=== PATIENT | female | born 1985 | race African-American/Black ===

== ENCOUNTER 2017-08-27 22:09 | Emergency (ER) | payer OTHER ==
[~2017-08-27] VITALS: Ht 160 cm; Wt 71.7 kg
[~2017-08-27 22:09] MED LIST: ADVAIR HFA 115-12 GM INH; ALBUTEROL SULF8.5 GM INH; ALBUTEROL2.5 MG/3 M HHN; ALPRAZOLAM0.25 MG ORAL; ATIVAN0.5 MG ORAL; BUSPAR10 MG ORAL; CEPHALEXIN500 MG ORAL; PREDNISONE20 MG ORAL; QVAR7.3 GM INH; XANAX0.5 MG ORAL; ZITHROMAX250 MG ORAL
[2017-08-27 22:20] VITALS: BP 148/76
[2017-08-27] MEDS ORDERED: LORazepam Inj 2mg/ml 1ml IV ONE (22:45)
--- NOTE | 2017-08-27 22:45 | Emergency Room Report ---
History of Present Illness General Chief Complaint: Upper Respiratory Illness Source: Patient, Medical Record Present Illness HPI Is a 32-year-old female with history of asthma and anxiety. She presents with chief complaint of shortness of breath. This has been onset for last 2 days. Slight cough. No nausea no vomiting. She just flew back from [place]. Denies any leg swelling. Denies any nausea vomiting. Denies any dyspnea exertion. She does have some slight chest pressure. Has tingling is in her fingers. Allergies: Coded Allergies: No Known Allergies (Unverified , 07/11/16) Patient History Past Medical History: see triage record, old chart reviewed, asthma, psych hx Past Surgical History: none Pertinent Family History: none Social History: Denies: smoking Last Menstrual Period: 08/24/17 Now: No - unknown : 1 Para: 1 Immunizations: other Reviewed Nursing Documentation: PMH: Agreed, PSxH: Agreed Nursing Documentation-PMH Hx Asthma: Yes History Of Psychiatric Problem: Yes - Anxiety Review of Systems Eye: Denies: eye pain, blurred vision ENT: Denies: ear pain, nose congestion, throat swelling Respiratory: Reports: shortness of breath, Denies: cough Cardiovascular: Denies: chest pain, palpitations Gastrointestinal: Denies: abdominal pain, diarrhea, nausea, vomiting Musculoskeletal: Denies: back pain, joint pain Skin: Denies: rash Neurological: Denies: headache, numbness Endocrine: Denies: increased thirst, increased urine Hematologic/Lymphatic: Denies: easy bruising All Other Systems: negative except mentioned in HPI Physical Exam Vital Signs Date Time Temp Pulse Resp B/P (MAP) Pulse Ox O2 Delivery O2 Flow Rate FiO2 08/27/17 22:19 99.0 66 20 148/76 98 Room Air vitals unremarkab Sp02 EP Interpretation: reviewed, normal General Appearance: well appearing, no apparent distress, alert Head: normocephalic, atraumatic Eyes: bilateral eye PERRL, bilateral eye EOMI ENT: hearing grossly normal, normal pharynx Neck: full range of motion, supple, no meningismus Respiratory: chest non-tender, lungs clear, normal breath sounds Cardiovascular #1: regular rate, rhythm, no murmur Gastrointestinal: normal bowel sounds, non tender, no mass, no organomegaly, no bruit, non-distended Musculoskeletal: back normal, gait/station normal, normal range of motion Psychiatric: anxious Skin: warm/dry Medical Decision Making Diagnostic Impression: Primary Impression: Acute hyperventilation Additional Impression: Anxiety ER Course Patient with shortness of breath and anxiety and hyperventilation. No evidence of wheezing. No evidence of PE, ACS, pneumonia to name a few. [place] better after Ativan. We'll discharge home Last Vital Signs Date Time Temp Pulse Resp B/P (MAP) Pulse Ox O2 Delivery O2 Flow Rate FiO2 08/27/17 22:20 66 20 Room Air 08/27/17 22:20 99.0 148/76 98 Status: improved Disposition: HOME, SELF-CARE Condition: Stable Scripts Lorazepam* (ATIVAN*) 1 Mg Tablet 1 MG ORAL THREE TIMES A DAY, #21 TAB Prov: LENY FLOYD M.D. 08/28/17 Albuterol Sulfate* (ALBUTEROL SULFATE HHN*) 2.5 Mg/3 Ml Vial.neb 2.5 MG HHN Q4H Y for Shortness of Breath, #25 VIAL Prov: LENY FLOYD M.D. 08/28/17 Additional Instructions: Followup with your DrGm in 7 days. Return if worse. LENY FLOYD M.D. Aug 27, 2017 22:45
[2017-08-28 00:42] VITALS: BP 137/80
[2017-08-28] MEDS ORDERED: ATIVAN1 MG ORAL (01:19)
[2017-08-28] MEDS ORDERED: ALBUTEROL2.5 MG/3 M HHN (01:19)
[2017-08-28 01:27] VITALS: BP 137/80
== END 2017-08-28 01:27 | disposition home or self-care (01) ==
LOC: EMR 23:08
DX: R06.4 Hyperventilation (principal); F41.9 Anxiety disorder, unspecified
CPT/HCPCS: 36415; 85379; 96374; 99284

== ENCOUNTER 2017-09-26 14:06 | Emergency (ER) | payer OTHER ==
[~2017-09-26] VITALS: Ht 162.6 cm; Wt 63.5 kg
[~2017-09-26 14:06] MED LIST changes: +ATIVAN1 MG ORAL
[2017-09-26 14:18] VITALS: BP 129/75
[2017-09-26] MEDS ORDERED: Phenazopyridine 200mg tab ORAL ONE (14:45)
[2017-09-26 14:48] LABS: APPEARANCE,URINE SLIGHTLY CLOUDY; BILIRUBIN, URINE NEGATIVE (NEGATIVE); COLOR,URINE PALE YELLOW; GLUCOSE, URINE (UA) NEGATIVE (NEGATIVE); KETONES,URINE NEGATIVE (NEGATIVE); LEUKOCYTE ESTERASE ,URINE 3+ (NEGATIVE); NITRITE,URINE NEGATIVE (NEGATIVE); PH,URINE 8 (4.5-8.0); PROTEIN,URINE 2+ (NEGATIVE); UROBILINOGEN,URINE NORMAL MG/DL (0.0-1.0)
--- NOTE | 2017-09-26 15:20 | Emergency Room Report ---
History of Present Illness General Chief Complaint: General Complaint Present Illness HPI 32-year-old female presents to the emergency department complaining of 6/10 in severity dysuria, hematuria and frequency x5 days. Patient denies low back pain , fevers, chills. Patient reports her symptoms are consistent with previous UTIs in the past. Patient reports some abdominal distention she denies abdominal tenderness and reports her symptoms are localized to the anterior where her bladder is. Patient states symptoms are exacerbated with full bladder. She also reports watery eyes, nasal congestion, rhinorrhea and cough. Denies . Denies high fevers, lethargy, neck stiffness, irritability , photophobia dehydration, N/V/D. Denies Cp, Palpitations, LOC, AMS, seizures, paresthesias, or changes in Hearing or vision, no Sudden severe MCGEE Allergies: Coded Allergies: No Known Allergies (Unverified , 07/11/16) Patient History Past Medical History: see triage record Past Surgical History: none Pertinent Family History: none Immunizations: UTD Reviewed Nursing Documentation: PMH: Agreed, PSxH: Agreed Nursing Documentation-PMH Hx Asthma: Yes Review of Systems All Other Systems: negative except mentioned in HPI Physical Exam Vital Signs Date Time Temp Pulse Resp B/P (MAP) Pulse Ox O2 Delivery O2 Flow Rate FiO2 09/26/17 14:08 98.6 72 20 129/75 100 Room Air Sp02 EP Interpretation: reviewed, normal General Appearance: no apparent distress, alert, GCS 15, non-toxic Head: normocephalic, atraumatic Eyes: bilateral eye normal inspection, bilateral eye PERRL, bilateral eye other - erythema, no photophobia, mild increased lacrimation, no d/c noted. VA normal. ENT: hearing grossly normal, normal voice Neck: full range of motion Respiratory: chest non-tender, lungs clear, normal breath sounds, speaking full sentences Cardiovascular #1: regular rate, rhythm, no edema Gastrointestinal: normal bowel sounds, non tender, soft Rectal: deferred Genitourinary: normal inspection Musculoskeletal: back normal, gait/station normal, normal range of motion, non- tender Neurologic: alert, oriented x3, responsive, motor strength/tone normal, sensory intact, speech normal, grossly normal Psychiatric: judgement/insight normal Skin: normal color, no rash, warm/dry, well hydrated Lymphatic: no adenopathy Medical Decision Making PA Attestation Dr. jaime is my supervising Physician whom patient management has been discussed with. Diagnostic Impression: Primary Impression: UTI (urinary tract infection) Qualified Codes: N30.01 - Acute cystitis with hematuria Additional Impressions: Cough Allergic conjunctivitis of both eyes and rhinitis ER Course 32-year-old female presents to the emergency department complaining of 6/10 in severity dysuria, hematuria and frequency x5 days. Patient denies low back pain , fevers, chills. Patient reports her symptoms are consistent with previous UTIs in the past. Patient reports some abdominal distention she denies abdominal tenderness and reports her symptoms are localized to the anterior where her bladder is. Patient states symptoms are exacerbated with full bladder. She also reports watery eyes, nasal congestion, rhinorrhea and cough. Denies . Denies high fevers, lethargy, neck stiffness, irritability , photophobia dehydration, N/V/D. Denies Cp, Palpitations, LOC, AMS, seizures, paresthesias, or changes in Hearing or vision, no Sudden severe MCGEE Ddx considered but are not limited to UTi , Pyelo, STI, Stone, Cystitis, URI, PNA, conjunctivitis just to name a few. Vital signs: are WNL, pt. is afebrile H&PE are most consistent with UTI ORDERS: - UA labs are attached : bacteria + in creased WBC's and leuks. -Urine Hcg: Negative. ED INTERVENTIONS: None required at this time. - Pyridium PO DISCHARGE: At this time pt. is stable for d/c to home. Will provide printed patient care instructions, and any necessary prescriptions. Care plan and follow up instructions have been discussed with the patient prior to discharge. Labs Test 09/26/17 14:14 Urine Color Pale yellow Urine Appearance Slightly cloudy Urine pH 8 (4.5-8.0) Urine Specific [place] 1.010 (1.005-1.035) Urine Protein 2+ (NEGATIVE) Urine Glucose (UA) Negative (NEGATIVE) Urine Ketones Negative (NEGATIVE) Urine Occult Blood 5+ (NEGATIVE) Urine Nitrite Negative (NEGATIVE) Urine Bilirubin Negative (NEGATIVE) Urine Urobilinogen Normal MG/DL (0.0-1.0) Urine Leukocyte Esterase 3+ (NEGATIVE) Urine RBC 20-30 /HPF (0 - 2) Urine WBC 20-30 /HPF (0 - 2) Urine Squamous Epithelial Cells Few /LPF (NONE/OCC) Urine Bacteria Few /HPF (NONE) Urine HCG, Qualitative Negative Last Vital Signs Date Time Temp Pulse Resp B/P (MAP) Pulse Ox O2 Delivery O2 Flow Rate FiO2 09/26/17 14:18 98.6 20 129/75 100 Room Air 09/26/17 14:08 72 Disposition: HOME, SELF-CARE Condition: Stable Scripts Fluconazole (FLUCONAZOLE) 100 Mg Tablet 100 MG ORAL DAILY, #2 TAB 0 Refills Prov: Sierra Franco P.A. 09/26/17 Guaifenesin (Guaifenesin) 1,200 Mg Tab.er.12h 1200 MG PO BID, #10 TAB Prov: Sierra Franco P.A. 09/26/17 Codeine/Promethazine Hcl* (PROMETHAZINE-CODEINE SYRUP*) 118 Ml Syrup 5 ML ORAL Q6H Y for For Cough, #118 ML 0 Refills Prov: Sierra Franco P.A. 09/26/17 Olopatadine Hcl (PATADAY) 2.5 Ml Drops 2 DROP OP DAILY, #2.5 ML Prov: Sierra Franco P.A. 09/26/17 Phenazopyridine Hcl* (PYRIDIUM*) 200 Mg Tablet 200 MG ORAL THREE TIMES A DAY for 3 Days, #9 TAB 0 Refills Prov: Sierra Franco P.A. 09/26/17 Nitrofurantoin Monohyd/M-Cryst* (MACROBID 100 MG*) 100 Mg Capsule 100 MG ORAL EVERY 12 HOURS for 5 Days, #10 CAP Prov: Sierra Franco.A. 09/26/17 Referrals: NOT CHOSEN IPA/MD,REFERRING (PCP) Patient Instructions: Allergic Conjunctivitis, Holr-wm-Uihl, Urinary Tract Infection Additional Instructions: Take medications as directed. Follow up with a Primary Care Provider in 3-5 days, even if your symptoms have resolved. --Please review list of primary care clinics, if you do not already have a primary care provider Return sooner to ED if new symptoms occur, or current symptoms become worse. Pyridium will cause your urine to change color (Red/Mascot), this is a normal side effect of the medication. - Please note that this Emergency Department Report was dictated using [employer] technology software, occasionally this can lead to erroneous entry secondary to interpretation by the dictation equipment. Sierra Franco. Sep 26, 2017 15:20
[2017-09-26] MEDS ORDERED: GUAIFENESIN1200 MG PO (15:24)
[2017-09-26] MEDS ORDERED: PHENAZOPYRIDIN200 MG ORAL (15:24)
[2017-09-26] MEDS ORDERED: NITROFURANTOIN100 M2 ORAL (15:24)
[2017-09-26] MEDS ORDERED: FLUCONAZOLE100 MG ORAL (15:24)
[2017-09-26] MEDS ORDERED: PROMETHAZINE-C118 M1 ORAL (15:24)
[2017-09-26] MEDS ORDERED: PATADAY2.5 ML OP (15:24)
[2017-09-26 15:30] VITALS: BP 129/75
== END 2017-09-26 15:30 | disposition home or self-care (01) ==
LOC: EMR 14:42
DX: N30.01 Acute cystitis with hematuria (principal); R05 Cough; H10.13 Acute atopic conjunctivitis, bilateral; J45.909 Unspecified asthma, uncomplicated
CPT/HCPCS: 81003; 81025; 87086; 99284

== ENCOUNTER 2019-08-14 19:06 | Emergency (ER) | payer OTHER ==
[~2019-08-14] VITALS: Ht 160 cm; Wt 77.1 kg
[~2019-08-14 19:06] MED LIST changes: +FLUCONAZOLE100 MG ORAL; +GUAIFENESIN1200 MG PO; +NITROFURANTOIN100 M2 ORAL; +PATADAY2.5 ML OP; +PHENAZOPYRIDIN200 MG ORAL; +PROMETHAZINE-C118 M1 ORAL
[2019-08-14] MEDS ORDERED: LORazepam 1mg tab ORAL ONE (19:15)
[2019-08-14] MEDS ORDERED: LORazepam Inj 2mg/ml 1ml IV ONE (19:30)
[2019-08-14 19:31] VITALS: BP 133/89
--- NOTE | 2019-08-14 19:44 | NUR ---
ED Nurse Note: Patient walked in to ER due to panick attack, severe anxiety. Patient presented with HR of 165, diaphoretic, crying. States that had panick attacks before. AAO x 4 , skin is warm to touch.
--- NOTE | 2019-08-14 19:57 | Emergency Room Report ---
History of Present Illness General Chief Complaint: Chest Pain Source: Patient Present Illness HPI 34 YO Female presents to the ED c/o 06/21 in severity dyspnea, shakiness, palpitations, and cramping of the hands bilaterally with associated bilateral hand paresthesias. Pt. with. hx of anxiety and takes 10mg Lexapro daily and is rx'd Xanax PRN for break through panic attacks. She states she is only rx'd small qty and last rx was in June. Pt. states she was out of her break through medication. Pt. reports under chronic amount of stress. She reports she just got a new PCP who dx'd her with HTN as well and has started her on Losartan. Pt. states she has not been taking the medication consistently but began taking it again this past week. pt. denies tobacco use or recent travel. She denies CP. She denies SI/HI, night sweats, significant changes in weight or hx of thyroid disorder. Pt. denies having calf pain. She denies taking oral contraception/ estrogen. Pt. reports she is currently on her cycle and denies suspicion of . Pt. reports THC use regularly. Denies hemoptysis, LOC, AMS, dizziness, Changes in Vision, Sensation, paresthesias, or a sudden severe headache. Allergies: Coded Allergies: No Known Allergies (Unverified , 08/14/19) Patient History Past Medical History: see triage record, HTN, GERD, psych hx - anxiety/panic attacks Past Surgical History: none Pertinent Family History: none Social History: Reports: drug use - THC Last Menstrual Period: now Now: No Immunizations: UTD Reviewed Nursing Documentation: PMH: Agreed; PSxH: Agreed Nursing Documentation-PMH Past Medical History: No History, Except For History Of Psychiatric Problem: Yes - anxiety attacks Review of Systems All Other Systems: negative except mentioned in HPI Physical Exam Vital Signs Date Time Temp Pulse Resp B/P (MAP) Pulse Ox O2 Delivery O2 Flow Rate FiO2 08/14/19 19:07 97.3 160 38 144/61 (88) 98 Room Air Sp02 EP Interpretation: reviewed, normal General Appearance: alert, GCS 15, non-toxic, moderate distress Head: normocephalic, atraumatic Eyes: bilateral eye normal inspection, bilateral eye PERRL, bilateral eye other - no exothalmus ENT: hearing grossly normal, no angioedema, normal voice Neck: full range of motion, thyroid normal Respiratory: chest non-tender, lungs clear, normal breath sounds, no respiratory distress, no accessory muscle use, no wheezing, speaking full sentences Cardiovascular #1: regular rate, rhythm, normal capillary refill, tachycardia Cardiovascular #2: 2+ radial (R), 2+ radial (L) Musculoskeletal: normal range of motion, gait/station normal, non-tender Neurologic: alert, motor strength/tone normal, oriented x3, sensory intact, cerebellar normal, responsive, speech normal Psychiatric: judgement/insight normal, memory normal, no suicidal/homicidal ideation, anxious Skin: no rash, normal color, normal inspection, warm/dry Medical Decision Making PA Attestation Dr. Clark Is my supervising Physician whom patient management has been discussed with. Diagnostic Impression: Primary Impression: Anxiety hyperventilation Additional Impression: Hx of primary hypertension ER Course 34 YO Female presents to the ED c/o 06/21 in severity dyspnea, shakiness, palpitations, and cramping of the hands bilaterally with associated bilateral hand paresthesias. Pt. with. hx of anxiety and takes 10mg Lexapro daily and is rx'd Xanax PRN for break through panic attacks. She states she is only rx'd small qty and last rx was in June. Pt. states she was out of her break through medication. Pt. reports under chronic amount of stress. She reports she just got a new PCP who dx'd her with HTN as well and has started her on Losartan. Pt. states she has not been taking the medication consistently but began taking it again this past week. pt. denies tobacco use or recent travel. She denies CP. She denies SI/HI, night sweats, significant changes in weight or hx of thyroid disorder. Pt. denies having calf pain. She denies taking oral contraception/ estrogen. Pt. reports she is currently on her cycle and denies suspicion of . Pt. reports THC use regularly. Denies hemoptysis, LOC, AMS, dizziness, Changes in Vision, Sensation, paresthesias, or a sudden severe headache. Ddx considered but are not limited to anxiety, GA, PE, asthma, thyroid storm, hyperthyroid, EPS Vital signs: tachypneic and tachycardic. Pt. is afebrile H&PE are most consistent with hyper-ventilation syndrome. Pt. is saturating at 99-100% O2 on RA. She is tachypneic. BP is elevated along with HR. Well criteria score does not suggest high probability of PE at this time. Low suspicion for cardiac etiology given absence of hx. and presentation. -review of CURES Report. Pt. has 3 previous rx's for small qty xanax by the same prescriber over the course of the last 12 months. Last fill was in June 2019 ORDERS: -UDS: pending- pt. unable to provide urine sample -EKG: initial -- 130bpm Sinus tachycardia no acute ST changes. No S1Q3T3 ---repeat: 113bpm Sinus tachycardia no acute ST changes. No S1Q3T3 ED INTERVENTIONS: -1mg Ativan IV - 0.1mg Clonidine PO The patient reports that her symptoms have improved greatly after ED interventions. Patient states that she feels much better and is ready to go home. -I do not identify an emergent condition at this time. With current presentation , pt. is stable for close outpatient follow up and conservative treatment. D/ w pt. to return promptly to ED with worsening or new symptoms.- Pt. verbalizes' understanding and agreement with proposed treatment plan. DISCHARGE: At this time pt. is stable for d/c to home. Will provide printed patient care instructions, and any necessary prescriptions. Care plan and follow up instructions have been discussed with the patient prior to discharge. EKG Diagnostic Results EP Interpretation: Dr. Clark Rate: tachycardiac - 113 NSR Rhythm: NSR ST Segments: no acute changes Other Impression No S1Q3T3 ASA given to the pt in ED: No PA Scribe Text This Interpretation was scribed by THEODORE Franco. Initial EKG which was of poor quality and when patient was actively moving showed sinus tachycardia with a rate of [address] segment changes. Chest X-Ray Diagnostic Results Chest X-Ray Diagnostic Results : Chest X-Ray Ordered: Yes # of Views/Limited/Complete: 1 View Indication: Shortness of Breath EP Interpretation: Yes THEODORE Xray: Interpretation reviewed, by supervising MD, and agrees with findings. Interpretation: no consolidation, no effusion, no pneumothorax, no acute cardiopulmonary disease Impression: No acute disease Electronically Signed by: Sierra Franco PA-C Last Vital Signs Date Time Temp Pulse Resp B/P (MAP) Pulse Ox O2 Delivery O2 Flow Rate FiO2 12/3/19 19:31 97.3 26 133/89 98 Room Air 08/14/19 19:31 160 Status: improved Disposition: HOME, SELF-CARE Condition: Stable Scripts Alprazolam* (XANAX*) 0.5 Mg Tablet 0.5 MG PO TID, #12 TAB Prov: Sierra Franco 08/14/19 Patient Instructions: Hyperventilation Additional Instructions: Take medications as directed. Do not drink alcohol, drive, or operate heavy machinery while taking Xanax as this may cause drowsiness. Follow up with a Primary Care Provider in 3-5 days, even if your symptoms have resolved. Return sooner to ED if new symptoms occur, or current symptoms become worse. - Please note that this Emergency Department Report was dictated using [employer]cher technology software, occasionally this can lead to erroneous entry secondary to interpretation by the dictation equipment. Sierra Franco Aug 14, 2019 19:57
--- NOTE | 2019-08-14 20:31 | NUR ---
ED Nurse Note: Patient states feel much better, feel safe.
[2019-08-14 21:41] VITALS: BP 150/98
--- NOTE | 2019-08-14 21:42 | NUR ---
ED Nurse Note: Pt cleared by health care Provider for discharge. DC instructions/prescription was given and explained to pt and verbalized understanding of teachings. All medical deviecs such as ID band removed. Pt is AAO x4, ambulatory and left with all personal belongings. Patient refused to sign DC papers.
--- NOTE | 2019-08-15 10:52 | Diagnostic Imaging Report ---
Indication: Chest pain Comparison: None A single view chest radiograph was obtained. Findings: Cardiomediastinal appearance is within normal limits for age. The lungs are clear. Pulmonary vascularity is appropriate. The diaphragmatic contour is smooth and costophrenic angles are sharp. No pleural effusions are identified. The bones are unremarkable. Impression: No acute findings
--- NOTE | 2019-08-15 16:14 | Cardiology Report ---
APPROVED REPORT EKG Measurement Heart [id number] ID [id number] Sinus tachycardia Otherwise normal ECG
== END 2019-08-14 21:43 | disposition home or self-care (01) ==
LOC: MERGE 20:37 → EMR 20:37
DX: F41.9 Anxiety disorder, unspecified (principal); I10 Essential (primary) hypertension; R06.4 Hyperventilation; K21.9 Gastro-esophageal reflux disease without esophagitis; R00.0 Tachycardia, unspecified
CPT/HCPCS: 71045; 93005; 96374; Z7502; 99284

== ENCOUNTER 2020-01-14 01:34 | Emergency (ER) | payer MEDICAID, OTHER ==
[~2020-01-14] VITALS: Ht 160 cm; Wt 77.1 kg
[2020-01-14 01:55] VITALS: BP 142/72
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
[2020-01-14] MEDS ORDERED: Morphine Sulfate 4mg/ml Inj (IV USE ONLY) IVP ONE (02:00)
[2020-01-14] MEDS ORDERED: LORazepam Inj 2mg/ml 1ml IV ONE (02:00)
--- NOTE | 2020-01-14 02:10 | NUR ---
ED Nurse Note: Iv line initated, IV fluids running, all medications administered, pt tolerated well. will continue to monitor.
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
--- NOTE | 2020-01-14 02:23 | NUR ---
ED Nurse Note: pt taken to CT in stable condition, no ss of distress noted.
--- NOTE | 2020-01-14 03:20 | NUR ---
ED Nurse Note: pt returned frmo CT in stable condition. Pt placed on monitor, IV fluids running.
--- NOTE | 2020-01-14 03:31 | Diagnostic Imaging Report ---
EXAM: CT Head Without Intravenous Contrast CLINICAL HISTORY: TRAUMA TECHNIQUE: Axial computed tomography images of the head/brain without intravenous contrast. CTDI is 53 mGy and DLP is 1152 mGy-cm. One or more of the following dose reduction techniques were used: automated exposure control, adjustment of the mA and/or kV according to patient size, use of iterative reconstruction technique. COMPARISON: No relevant prior studies available. FINDINGS: Brain: No hemorrhage or mass effect. Ventricles: No hydrocephalus. Bones/joints: Old left lamina papyracea fracture. Soft tissues: Unremarkable. Sinuses: Unremarkable. Mastoid air cells: Clear. IMPRESSION: No acute hemorrhage, hydrocephalus, or mass effect.
--- NOTE | 2020-01-14 03:39 | Diagnostic Imaging Report ---
EXAM: CT Chest Without Intravenous Contrast CLINICAL HISTORY: TRAUMA TECHNIQUE: Axial computed tomography images of the chest without intravenous contrast. CTDI is 7 mGy and DLP is 250 mGy-cm. One or more of the following dose reduction techniques were used: automated exposure control, adjustment of the mA and/or kV according to patient size, use of iterative reconstruction technique. COMPARISON: No relevant prior studies available. FINDINGS: Lungs: No mass. No consolidation. Pleural space: No pneumothorax. No effusion. Heart: Normal heart size. No pericardial effusion. Bones/joints: No acute fracture. Soft tissues: Unremarkable. Vasculature: Unremarkable. No thoracic aortic aneurysm. Lymph nodes: No enlarged lymph nodes. Upper abdomen: Unremarkable. IMPRESSION: No acute intrathoracic findings.
--- NOTE | 2020-01-14 03:50 | NUR ---
ED Nurse Note: ERMD at bedside
[2020-01-14] MEDS ORDERED: ALPRAZOLAM1 M2 ORAL (03:54)
[2020-01-14] MEDS ORDERED: NAPROXEN500 M2 ORAL (03:54)
[2020-01-14] MEDS ORDERED: NEOSPORIN OINT30 GM TOPIC (03:59)
[2020-01-14 04:00] VITALS: BP 130/70
[2020-01-14 04:09] VITALS: BP 130/70
--- NOTE | 2020-01-14 04:09 | NUR ---
ER DISCHARGE NOTE: Patient is cleared to be discharged home per ERMD, pt is aox4, 98% on room air, with stable vital signs. pt was given dc and prescription instructions, pt was able to verbalize understanding, pt id band and iv site removed without complications. pt is able to ambulate with steady gait. pt took all belongings.
== END 2020-01-14 04:09 | disposition home or self-care (01) ==
LOC: EMR 02:04
DX: R07.9 Chest pain, unspecified (principal); S09.90XA Unspecified injury of head, initial encounter; F41.9 Anxiety disorder, unspecified; R51 Headache; V43.62XA Car passenger injured in collision with other type car in traffic accident, initial encounter; Y92.410 Unspecified street and highway as the place of occurrence of the external cause; I10 Essential (primary) hypertension
CPT/HCPCS: 70450; 71250; 96361; 96374; 96375; J2270; Z7502; 99284

== ENCOUNTER 2020-03-05 21:47 | Emergency (ER) | payer MEDICAID ==
[~2020-03-05] VITALS: Ht 160 cm; Wt 77.1 kg
[~2020-03-05 21:47] MED LIST changes: +ALPRAZOLAM1 M2 ORAL; +NAPROXEN500 M2 ORAL; +NEOSPORIN OINT30 GM TOPIC
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
[2020-03-05] MEDS ORDERED: LORazepam Inj 2mg/ml 1ml IV ONE (22:15)
[2020-03-05 22:34] VITALS: BP 138/72
[2020-03-05 22:37] LABS: BASOPHILS % (AUTO) 1.1 % (0.0-2.0); EOSINOPHILS % (AUTO) 1.7 % (0.0-3.0); HEMOGLOBIN 14.3 G/DL (12.0-16.0); LYMPHOCYTES % (AUTO) 45.8 % (20.0-45.0); MEAN CORPUSCULAR VOLUME 102 FL (80-99); MONOCYTES % (AUTO) 6.5 % (1.0-10.0); NEUTROPHILS % (AUTO) 44.9 % (45.0-75.0); PLATELET COUNT 328 K/UL (150-450); RED BLOOD COUNT 4.13 M/UL (4.20-5.40); RED CELL DISTRIBUTION WIDTH 15.5 % (11.6-14.8); WHITE BLOOD COUNT 8.7 K/UL (4.8-10.8)
[2020-03-05 22:58] LABS: APPEARANCE,URINE SLIGHTLY CLOUDY; BILIRUBIN, URINE NEGATIVE (NEGATIVE); GLUCOSE, URINE (UA) NEGATIVE (NEGATIVE); KETONES,URINE 2+ (NEGATIVE); LEUKOCYTE ESTERASE ,URINE 1+ (NEGATIVE); NITRITE,URINE NEGATIVE (NEGATIVE); PH,URINE 6.5 (4.5-8.0); PROTEIN,URINE 2+ (NEGATIVE); UROBILINOGEN,URINE 1 MG/DL (0.0-1.0)
[2020-03-05 23:01] LABS: COLOR,URINE YELLOW
[2020-03-05 23:09] LABS: ALANINE AMINOTRANSFERASE 42 U/L (12-78); ALBUMIN 3.9 G/DL (3.4-5.0); ALBUMIN/GLOBULIN RATIO 0.9 (1.0-2.7); ALKALINE PHOSPHATASE 123 U/L (46-116); ANION GAP 19 mmol/L (5-15); ASPARTATE AMINO TRANSFERASE 55 U/L (15-37); BILIRUBIN,TOTAL 0.7 MG/DL (0.2-1.0); BLOOD UREA NITROGEN 8 mg/dL (7-18); CARBON DIOXIDE 21 MMOL/L (21-32); CHLORIDE 103 MMOL/L (98-107); CREATINE KINASE 388 U/L (26-308); CREATININE 0.9 MG/DL (0.55-1.30); POTASSIUM 3.2 MMOL/L (3.5-5.1); SODIUM 143 MMOL/L (136-145)
[2020-03-06] MEDS ORDERED: VISTARIL25 M1 PO (00:12)
[2020-03-06 00:25] VITALS: BP 118/72
--- NOTE | 2020-03-06 10:03 | Diagnostic Imaging Report ---
Procedure: XRAY Chest 1v Reason for study: Reason For Exam: [id number] Comparison films: 07/11/2016. FINDINGS: A single one view chest is obtained. Vascularity is normal. The lung diaz are clear bilaterally. Cardiac and mediastinal silhouette are within normal limits. CP angles are sharp. The bony thorax appear unremarkable. IMPRESSION: NO ACUTE CARDIOPULMONARY DISEASE.
== END 2020-03-06 00:15 | disposition home or self-care (01) ==
LOC: EMR 22:30
DX: R06.4 Hyperventilation (principal); F14.90 Cocaine use, unspecified, uncomplicated; I10 Essential (primary) hypertension; J45.909 Unspecified asthma, uncomplicated
CPT/HCPCS: 36415; 71045; 80053; 80307; 81003; 81025; 82550; 83880; 84484; 85025; 87086; 93005; 96374; Z7502; 99284

== ENCOUNTER 2020-06-06 22:18 | Emergency (ER) | payer MEDICAID ==
[~2020-06-06] VITALS: Ht 170.2 cm; Wt 72.6 kg
[~2020-06-06 22:18] MED LIST changes: +VISTARIL25 M1 PO
[2020-06-06 22:31] VITALS: BP 138/85
[2020-06-06] MEDS ORDERED: LORazepam Inj 2mg/ml 1ml IM ONE (23:00)
[2020-06-06] MEDS ORDERED: IBUPROFEN600 M1 ORAL (23:13)
[2020-06-06] MEDS ORDERED: ATIVAN1 MG ORAL (23:13)
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
[2020-06-06 23:29] VITALS: BP 120/82
--- NOTE | 2020-06-07 00:01 | Diagnostic Imaging Report ---
EXAM: XR Lumbosacral Spine, 2 or 3 Views CLINICAL HISTORY: TRAUMA TECHNIQUE: Frontal and lateral views of the lumbar spine and sacrum. COMPARISON: No relevant prior studies available. FINDINGS: Vertebrae: Unremarkable. No acute fracture. Normal alignment. Sacrum/coccyx: Unremarkable as visualized. No acute fracture. Disc spaces: Mild lumbar degenerative disc disease. Soft tissues: Straightening of the lumbar spine may be positional versus muscular spasm. IMPRESSION: 1. No fracture or subluxation. 2. Straightening of the lumbar spine may be positional versus muscular spasm.
== END 2020-06-06 23:30 | disposition home or self-care (01) ==
LOC: EMR 23:17
DX: M54.5 Low back pain (principal); I10 Essential (primary) hypertension; J45.909 Unspecified asthma, uncomplicated; F41.9 Anxiety disorder, unspecified; R06.4 Hyperventilation; V43.52XA Car driver injured in collision with other type car in traffic accident, initial encounter; Y92.411 Interstate highway as the place of occurrence of the external cause; Z79.899 Other long term (current) drug therapy
CPT/HCPCS: 72020; 96372; Z7502; 99283

== ENCOUNTER 2020-07-25 16:29 | Emergency (ER) | payer MEDICAID ==
[~2020-07-25] VITALS: Ht 160 cm; Wt 75.7 kg
[~2020-07-25 16:29] MED LIST changes: +IBUPROFEN600 M1 ORAL
--- NOTE | 2020-07-25 16:46 | Emergency Room Report ---
History of Present Illness General Chief Complaint: Flu Like Symptoms Source: Patient Present Illness HPI Disclaimer: Please note that this report is being documented using [employer]AG[employer] technology. This can lead to erroneous entry secondary to incorrect interpretation by the dictating instrument. HPI: 35-year-old female presents for evaluation of fever, myalgias. Symptoms present approximately 1 week but worse over the past 3 days. Notes fevers as high as 103 degrees taken orally at home. Respond to NSAIDs. Patient reports abdominal cramping though states she is due for her period any day now. Denies dysuria or hematuria. Denies nausea, vomiting or diarrhea but reports loss of appetite. Reports aching muscles and joints in upper and lower extremities. Today she felt lightheaded and near syncopal. Denied palpitations or chest pain. Reports mild shortness of breath and has a history of asthma. Has not needed her albuterol inhaler. 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 She is not aware of anybody that is tested positive for COVID-19. She has not received a flu shot this year. No COVID-19 test for patient. PMH: Hypertension, asthma PSH: Denied Allergies: Denied Social Hx: Occasional THC use denies tobacco use Allergies: Coded Allergies: No Known Allergies (Unverified , 07/11/16) COVID-19 Screening Contact w/high risk pt: No Recent Travel to affected area: No Experienced COVID-19 symptoms?: No Nursing Documentation-PMH Hx Hypertension: Yes Hx Asthma: Yes Review of Systems All Other Systems: negative except mentioned in HPI Physical Exam General: Awake and alert, no acute distress, afebrile HEENT: NC/AT. EOMI. Cardiovascular: RRR. S1 and S2 normal. No murmur appreciated Resp: Normal work of breathing. No cough, wheezing or crackles appreciated Abdomen: Abdomen is soft, nondistended. Mild suprapubic tenderness. No masses, no rebound. Belly is otherwise benign and nontender Skin: Intact. No abrasions, laceration or rash over the exposed skin MSK: Normal tone and bulk. Moving all extremities. No obvious deformity. Neuro: Awake and alert. Mentating appropriately. Procedures Critical Care Time Critical Care Time Total critical care time: Approximately 45 minutes Due to a high probability of clinically significant, life threatening deterioration, the patient required the highest level of preparedness to intervene emergently and I personally spent this critical care time directly and personally managing the patient. This critical care time included obtaining a history, examining the patient, pulse oximetry, ordering and reviewing studies, ordering treatments, evaluating response to treatment and updating management plan as needed, frequent reassessment and discussion with other providers as well as arranging for ultimate disposition. This critical to care time was performed to assess and manage the high probability of life-threatening deterioration that could result in multiorgan failure. This critical care time is separate from the separately billable procedures and treating other patients. Medical Decision Making Diagnostic Impression: Primary Impression: UTI (urinary tract infection) Additional Impressions: Hypomagnesemia Hypokalemia ER Course Is a 35-year-old female presenting for evaluation of fevers, myalgias and other flulike symptoms. Differential includes is not limited to viral syndrome, COVID-19 infection, influenza, pneumonia, dehydration, ACS, arrhythmia, gastritis, gastroenteritis, UTI, pyelonephritis. COVID-19 returned negative. No evidence of infiltrate on chest x-ray or other abnormalities. EKG was nonischemic and otherwise within normal limits with normal intervals. Patient's labs showed hypokalemia and hypomagnesemia. IV and oral repletion were ordered. I discussed admission with the patient however she declined stating that she did not wish to stay in the hospital at this time and that would rather follow- up on an outpatient basis with her PMD. She states she can see them quickly and order outpatient lab work. We will continue on potassium repletion. Labs also concerning for urinary tract infection. She received ceftriaxone in the ED and will be discharged on Keflex. We will follow-up with her PMD for this as well. Discussed reasons to return to the ER. She understands and agrees with the t reatment plan. Laboratory Tests Test 07/25/20 17:00 07/25/20 18:10 White Blood Count 11.6 K/UL (4.8-10.8) H Red Blood Count 3.74 M/UL (4.20-5.40) L Hemoglobin 13.4 G/DL (12.0-16.0) Hematocrit 38.2 % (37.0-47.0) Mean Corpuscular Volume 102 FL (80-99) H Mean Corpuscular Hemoglobin 35.9 PG (27.0-31.0) H Mean Corpuscular Hemoglobin Concent 35.1 G/DL (32.0-36.0) Red Cell Distribution Width 13.5 % (11.6-14.8) Platelet Count 137 K/UL (150-450) L Mean Platelet Volume 7.0 FL (6.5-10.1) Neutrophils (%) (Auto) 83.8 % (45.0-75.0) H Lymphocytes (%) (Auto) 6.5 % (20.0-45.0) L Monocytes (%) (Auto) 7.9 % (1.0-10.0) Eosinophils (%) (Auto) 0.4 % (0.0-3.0) Basophils (%) (Auto) 1.5 % (0.0-2.0) Urine Color Yellow Urine Appearance Slightly cloudy Urine pH 6 (4.5-8.0) Urine Specific [place] [facility] 1.005 (1.005-1.035) Urine Protein 2+ (NEGATIVE) H Urine Glucose (UA) Negative (NEGATIVE) Urine Ketones 1+ (NEGATIVE) H Urine Blood 2+ (NEGATIVE) H Urine Nitrite Negative (NEGATIVE) Urine Bilirubin 1+ (NEGATIVE) H Urine Ictotest Negative (NEGATIVE) Urine Urobilinogen 1 MG/DL (0.0-1.0) H Urine Leukocyte Esterase 3+ (NEGATIVE) H Urine RBC 5-10 /HPF (0 - 2) H Urine WBC Tntc /HPF (0 - 2) H Urine Squamous Epithelial Cells Many /LPF (NONE/OCC) H Urine Bacteria Many /HPF (NONE) H Sodium Level 133 MMOL/L (136-145) L 134 MMOL/L (136-145) L Potassium Level 2.5 MMOL/L (3.5-5.1) *L 2.6 MMOL/L (3.5-5.1) *L Chloride Level 97 MMOL/L (98-107) L 100 MMOL/L (98-107) Carbon Dioxide Level 27 MMOL/L (21-32) 24 MMOL/L (21-32) Anion Gap 11 mmol/L (5-15) 10 mmol/L (5-15) Blood Urea Nitrogen 8 mg/dL (7-18) 7 mg/dL (7-18) Creatinine 1.2 MG/DL (0.55-1.30) 1.1 MG/DL (0.55-1.30) Estimated Glomerular Filtration Rate > 60 mL/min (>60) > 60 mL/min (>60) Glucose Level 88 MG/DL (74-106) 90 MG/DL (74-106) Calcium Level 8.4 MG/DL (8.5-10.1) L 7.5 MG/DL (8.5-10.1) L Total Bilirubin 1.2 MG/DL (0.2-1.0) H Direct Bilirubin 0.6 MG/DL (0.0-0.3) H Aspartate Amino Transferase (AST) 121 U/L (15-37) H Alanine Aminotransferase (ALT) 75 U/L (12-78) Alkaline Phosphatase 171 U/L (46-116) H Troponin I 0.000 ng/mL (0.000-0.056) Total Protein 7.9 G/DL (6.4-8.2) Albumin 3.1 G/DL (3.4-5.0) L Globulin 4.8 g/dL Albumin/Globulin Ratio 0.6 (1.0-2.7) L Magnesium Level 1.4 MG/DL (1.8-2.4) L Microbiology Date/Time Source Procedure Growth Status 07/25/20 17:00 Nasopharynx SARS-CoV-2 RdRp Gene Assay - Final Complete EKG Diagnostic Results Troponin ordered: Yes When was troponin ordered?: Jul 25, 2020 EKG Time: 17:01 Rate: normal Rhythm: NSR ST Segments: no acute changes Other Impression Sinus rhythm, normal axis, normal intervals, no ST segment changes. Rhythm Strip Diag. Results Rhythm Strip Time: 17:01 EP Interpretation: yes Rate: 88 Rhythm: NSR, no PVC's, no ectopy Chest X-Ray Diagnostic Results Chest X-Ray Diagnostic Results : Chest X-Ray Ordered: Yes # of Views/Limited/Complete: 1 View Indication: Other - Fever EP Interpretation: Yes Interpretation: no consolidation, no effusion, no pneumothorax, other - Bilateral metallic piercings Impression: No acute disease Electronically Signed by: Electronically signed by Dr. Feliz Clark MD Disposition: HOME, SELF-CARE Condition: Stable Scripts Potassium Chloride* (K-DUR*) 20 Meq Tab.er.prt 40 MEQ ORAL DAILY for SUPPLEMENT for 7 Days, #14 TAB 0 Refills Prov: Feliz Clark MD 07/25/20 Cephalexin* (KEFLEX*) 500 Mg Capsule 500 MG ORAL EVERY 12 HOURS for 7 Days, #14 CAP 0 Refills Prov: Feliz Clark MD 07/25/20 Feliz Clark MD Jul 25, 2020 16:46
[2020-07-25 17:00] VITALS: BP 112/78
--- NOTE | 2020-07-25 17:00 | NUR ---
ED Nurse Note: pt presents to ED c/o fever and body aches x 3 days. pt reports fever of 103 at home, she has been medicating with OTC meds which brings the fever down but it comes back after a couple hours. pt denies any respiratory symptoms at this time, denies any cough. has not been tested for COVID
[2020-07-25] MEDS ORDERED: Ketorolac 30mg Inj IV ONE (17:15)
[2020-07-25 17:30] LABS: APPEARANCE,URINE SLIGHTLY CLOUDY; BILIRUBIN, URINE 1+ (NEGATIVE); COLOR,URINE YELLOW; GLUCOSE, URINE (UA) NEGATIVE (NEGATIVE); KETONES,URINE 1+ (NEGATIVE); LEUKOCYTE ESTERASE ,URINE 3+ (NEGATIVE); NITRITE,URINE NEGATIVE (NEGATIVE); PH,URINE 6 (4.5-8.0); PROTEIN,URINE 2+ (NEGATIVE); UROBILINOGEN,URINE 1 MG/DL (0.0-1.0)
[2020-07-25 17:31] LABS: BASOPHILS % (AUTO) 1.5 % (0.0-2.0); EOSINOPHILS % (AUTO) 0.4 % (0.0-3.0); HEMATOCRIT 38.2 % (37.0-47.0); HEMOGLOBIN 13.4 G/DL (12.0-16.0); LYMPHOCYTES % (AUTO) 6.5 % (20.0-45.0); MEAN CORPUSCULAR VOLUME 102 FL (80-99); MONOCYTES % (AUTO) 7.9 % (1.0-10.0); NEUTROPHILS % (AUTO) 83.8 % (45.0-75.0); PLATELET COUNT 137 K/UL (150-450); RED BLOOD COUNT 3.74 M/UL (4.20-5.40); RED CELL DISTRIBUTION WIDTH 13.5 % (11.6-14.8); WHITE BLOOD COUNT 11.6 K/UL (4.8-10.8)
[2020-07-25 17:49] LABS: ALANINE AMINOTRANSFERASE 75 U/L (12-78); ALBUMIN 3.1 G/DL (3.4-5.0); ALBUMIN/GLOBULIN RATIO 0.6 (1.0-2.7); ALKALINE PHOSPHATASE 171 U/L (46-116); ANION GAP 11 mmol/L (5-15); ASPARTATE AMINO TRANSFERASE 121 U/L (15-37); BILIRUBIN,TOTAL 1.2 MG/DL (0.2-1.0); BLOOD UREA NITROGEN 8 mg/dL (7-18); CALCIUM 8.4 MG/DL (8.5-10.1); CARBON DIOXIDE 27 MMOL/L (21-32); CHLORIDE 97 MMOL/L (98-107); CREATININE 1.2 MG/DL (0.55-1.30); SODIUM 133 MMOL/L (136-145)
[2020-07-25] MEDS ORDERED: CEPHALEXIN500 MG ORAL (17:50)
[2020-07-25 17:51] LABS: POTASSIUM 2.5 MMOL/L (3.5-5.1)
[2020-07-25 17:53] LABS: BILIRUBIN,DIRECT 0.6 MG/DL (0.0-0.3)
[2020-07-25] MEDS ORDERED: cefTRIAXone 1 GM in NS 55 ML IVPB ONE (18:00)
--- NOTE | 2020-07-25 18:30 | NUR ---
ED Nurse Note: pt asking for food, [place] aware and approved this. pt provided with sandwich and juices as requested.
[2020-07-25 18:31] LABS: ANION GAP 10 mmol/L (5-15); BLOOD UREA NITROGEN 7 mg/dL (7-18); CALCIUM 7.5 MG/DL (8.5-10.1); CARBON DIOXIDE 24 MMOL/L (21-32); CHLORIDE 100 MMOL/L (98-107); CREATININE 1.1 MG/DL (0.55-1.30); SODIUM 134 MMOL/L (136-145)
[2020-07-25 18:32] LABS: POTASSIUM 2.6 MMOL/L (3.5-5.1)
--- NOTE | 2020-07-25 19:00 | NUR ---
HAND-OFF: Report given to SHEBLY Gauthier.
--- NOTE | 2020-07-25 19:03 | Diagnostic Imaging Report ---
EXAM: XR Chest, 1 View CLINICAL HISTORY: SOB TECHNIQUE: Frontal view of the chest. COMPARISON: Chest radiograph on 03/05/2020 FINDINGS: Hardware: None. Lungs/pleura: Normal. No focal consolidation. No pleural effusion or pneumothorax. Heart/mediastinum: Normal. No cardiomegaly. Soft tissues: Bilateral nipple piercings. Bones: No acute fracture. Upper abdomen: Normal. IMPRESSION: No acute disease identified.
[2020-07-25] MEDS ORDERED: POTASSIUM CHLO20 ME1 ORAL (19:07)
--- NOTE | 2020-07-25 19:55 | NUR ---
ED Nurse Note: Patient resting in bed, no acute distress noted, provided oral hydration. magnesium sulfate and KCl running.
--- NOTE | 2020-07-25 20:24 | NUR ---
ED Nurse Note: Per ERMD, patient only needs 1 bag of magnesium sulfate, noted on EMAR.
[2020-07-25 20:56] VITALS: BP 118/80
--- NOTE | 2020-07-25 20:56 | NUR ---
ER DISCHARGE NOTE: Patient is cleared to be discharged per ERMD, pt is aox4, on room air, with stable vital signs. pt was given dc and prescription instructions, pt was able to verbalize understanding, pt id band and iv site removed intact without complications. pt is able to ambulate with steady gait. pt took all belongings. pt stable upon discharge.
--- NOTE | 2020-07-27 16:08 | Cardiology Report ---
APPROVED REPORT EKG Measurement Heart [id number] <Conclusion> Normal sinus rhythm Possible Left atrial enlargement Borderline ECG
== END 2020-07-25 20:56 | disposition home or self-care (01) ==
LOC: EMR 16:55
DX: N39.0 Urinary tract infection, site not specified (principal); E83.42 Hypomagnesemia; E87.6 Hypokalemia; I10 Essential (primary) hypertension
CPT/HCPCS: 36415; 71045; 80048; 80053; 81003; 82248; 83735; 84484; 85025; 87086; 87181; 93005; 96361; 96365; 96367; 96375; J0696; J1885; J3480; J7030; U0002; Z7502; 86710; 99291; J8499

== ENCOUNTER 2020-09-26 19:54 | Emergency (ER) | payer SELFPAY, MEDICAID ==
[~2020-09-26] VITALS: Ht 167.6 cm; Wt 68.0 kg
[~2020-09-26 19:54] MED LIST changes: +NAPROXEN500 M1 ORAL; +POTASSIUM CHLO20 ME1 ORAL; +ROBAXIN-750750 MG PO
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
--- NOTE | 2020-09-26 20:05 | NUR ---
ED Nurse Note: ERMD at bedside
[2020-09-26 20:06] VITALS: BP 96/58
[2020-09-26] MEDS ORDERED: AUGMENTIN 875-1 EAC1 ORAL (20:11)
--- NOTE | 2020-09-26 20:18 | NUR ---
Discharge instructions with Rx-given to [facility]ASD.Patient left with LASD, all belongings with patient.
--- NOTE | 2020-09-26 20:21 | NUR ---
ER DISCHARGE NOTE: Patient is medically cleared to be discharged per ERMD, pt is aox4, on room air, with stable vital signs. pt and Lapd was given dc and prescription instructions, pt was able to verbalize understanding, pt id band removed. pt is able to ambulate with steady gait accompanied by lapd. pt took all belongings.
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
== END 2020-09-26 20:17 | disposition home or self-care (01) ==
LOC: EMR 20:01
DX: Z02.89 Encounter for other administrative examinations (principal); S11.95XA Open bite of unspecified part of neck, initial encounter; S21.052A Open bite of left breast, initial encounter; I10 Essential (primary) hypertension; Y04.1XXA Assault by human bite, initial encounter; J45.909 Unspecified asthma, uncomplicated; Y93.9 Activity, unspecified; Y92.9 Unspecified place or not applicable
CPT/HCPCS: 99282